=== PATIENT | female | born 1960 | race Hispanic/Latino ===

== ENCOUNTER → 2017-10-20 | Emergency (ER) | payer OTHER ==
[~2017-10-20] VITALS: Ht 152.4 cm; Wt 58.6 kg
[~2017-10-20] MED LIST: DEXAMETHASONE SOD PHOS 10 MG/1 ML VIAL IV ONE; FENTANYL CITRATE/PF 100MCG/2 ML INJ IV ONE; MORPHINE SULFATE 2 MG/ML SYR IV ONE; MORPHINE SULFATE 4 MG/ML SYR IV ONE; TYLENOL WITH C1 EACH PO
[2017-10-20 15:29] VITALS: BP 134/71
== END | disposition home or self-care (01) ==
LOC: FSED 12:47
DX: G44.89 Other headache syndrome (principal); R68.83 Chills (without fever); R63.4 Abnormal weight loss; K21.9 Gastro-esophageal reflux disease without esophagitis; Z85.841 Personal history of malignant neoplasm of brain
CPT/HCPCS: 80053; 85025; 96374; 99283; J1100

== ENCOUNTER 2017-10-25 03:02 | Emergency (ER) | payer OTHER ==
[~2017-10-25] VITALS: Ht 152.4 cm; Wt 58.5 kg
[~2017-10-25 03:02] MED LIST changes: -DEXAMETHASONE SOD PHOS 10 MG/1 ML VIAL IV ONE; -FENTANYL CITRATE/PF 100MCG/2 ML INJ IV ONE; -MORPHINE SULFATE 2 MG/ML SYR IV ONE; -MORPHINE SULFATE 4 MG/ML SYR IV ONE
[2017-10-25] MEDS ORDERED: ONDANSETRON HCL INJ 2 MG/ML VIAL IV STA (04:21)
[2017-10-25] MEDS ORDERED: MORPHINE SULFATE 5 MG/ML VIAL IV ONE (04:30)
[2017-10-25] MEDS ORDERED: POTASSIUM CHLORIDE 20 MEQ TAB CR PO STA (04:36)
[2017-10-25 05:15] VITALS: BP 146/87
== END 2017-10-25 05:32 | disposition short-term general hospital (02) ==
LOC: FSED 03:02
DX: R07.89 Other chest pain (principal); R11.2 Nausea with vomiting, unspecified; R42 Dizziness and giddiness; E87.6 Hypokalemia; B34.9 Viral infection, unspecified
CPT/HCPCS: 80053; 82553; 84484; 85025; 87400; 93005; 96374; 96375; 99283; J2270; J2405